=== PATIENT | male | born 1955 | race American Indian/Alaskan Native ===

== ENCOUNTER 2016-11-07 09:48 | Emergency (ER) | payer SELFPAY ==
--- NOTE | 2016-11-07 11:27 | Emergency Department Report ---
Chief Complaint: Abdominal Pain Stated Complaint: ABD PAIN Time Seen by Provider: 11/07/16 11:21 - HPI History of Present Illness: Pt. is a 61 y.o Male who presents to ED c/o sharp, intermittent, non-radiating, abdominal pain x 2 weeks but has gotten worse yesterday. Pt. states pain located to umbilical region .The abdominal pain has gradually worsened. Pt. rates the pain as 6/10 at its worst. The pain is alleviated /aggravated with person on the umbilical region. Patient states she is visiting from [place] states the only medication he takes for chemical imbalance and something for insomnia. Pt. denies fever, chills, chest pain, sob, n/v, abdominal trauma or injury, diarrhea. - ROS Review of Systems: As noted in HPI - Exam Vital Signs: Vital Signs 11/07/16 10:57 Temperature 97.7 F Pulse Rate 84 Respiratory 18 Rate Blood Pressure 151/92 O2 Sat by Pulse 96 Oximetry Physical Exam: GENERAL: Alert and oriented x3, no apparent distress, Normal Gait, atraumatic. HEAD: Head is normocephalic and a-traumatic. LUNGS: Symetrical with respiration, No wheezing, no rales or crackles, CTAB. HEART: S1, S2 present, regular rate and rhythm without murmur, no rubs, no gallops. ABDOMEN: No organomegaly was noted,Positive bowel sounds, soft, and non- distended. Mild tenderness to palpation of the umbilical region. Nontender to palpation on all other Quadrants, NO CVA tenderness. SKIN: Warm and dry, No lesions, No ulceration or induration present. MSE screening note: Focused history and physical exam performed. Due to findings the following was ordered: ED Medical Decision Making - Medical Decision Making Abdominal pain protocol ordered. CT scan ordered. Patient to be seen by ED physician. If labs and CT scanning negative patient can be seen by [facility] provider ED Disposition for MSE Condition: Stable
--- NOTE | 2016-11-07 12:07 | Cat Scan Report ---
CT OF THE ABDOMEN AND PELVIS WITHOUT CONTRAST HISTORY: Abdominal pain, periumbilical pain. TECHNIQUE: Helical CT without contrast. Sagittal and coronal reformatted images. FINDINGS: No comparison. A small periumbilical hernia containing fat and trace fluid is identified just to the right of midline. The hernia has an 8 mm neck. No bowel loops are incorporated. There is moderate fatty infiltration throughout the liver. No obvious liver mass. Normal biliary system, pancreas, spleen, kidneys, adrenal glands and bladder. The prostate gland is moderately enlarged measuring 6.2 cm in diameter. The bowel or normal caliber and wall thickness. Normal appendix. There a few scattered diverticula in the distal colon but no inflammatory changes. Heart size is within normal limits. The aorta is normal caliber. The visualized lung bases are clear. No acute bony abnormality or suspicious bony lesion. Impression: Small periumbilical hernia as described above. Mildly enlarged prostate gland. Hepatic steatosis.
[2016-11-07 12:09] LABS: Basophils % (Auto) 0.5 % (0.0-1.8); Eosinophils % (Auto) 0.7 % (0.0-4.3); Hematocrit 46.6 % (35.5-45.6); Hemoglobin 15.8 gm/dl (11.8-15.2); Mean Corpuscular HGB Conc 34 % (32-34); Mean Corpuscular Hemoglobin 30 pg (28-32); Mean Corpuscular Volume 90 fl (84-94); Platelet Count 174 K/mm3 (140-440); Red Blood Count 5.18 M/mm3 (3.65-5.03); White Blood Count 7.3 K/mm3 (4.5-11.0)
[2016-11-07 12:30] LABS: Alanine Aminotransferase 72 units/L (7-56); Albumin 4.3 g/dL (3.9-5); Albumin/Globulin Ratio 1.4 %; Alkaline Phosphatase 63 units/L (35-129); Anion Gap 17 mmol/L; BUN/Creatinine Ratio 11.25; Bilirubin,Total 0.4 mg/dL (0.1-1.2); Blood Urea Nitrogen 9 mg/dL (9-20); Carbon Dioxide 27 mmol/L (22-30); Chloride 102.3 mmol/L (98-107); Glucose 94 mg/dL (75-100); Lipase 25 units/L (13-60); Potassium 4.2 mmol/L (3.6-5.0); Sodium 142 mmol/L (137-145); Total Protein 7.3 g/dL (6.3-8.2)
[2016-11-07 13:29] LABS: Bilirubin,Urine NEG (Negative); Blood,Urine SM (Negative); Ketones,Urine NEG (Negative); Leukocyte Esterase,Urine NEG (Negative); Mucus,Urine FEW /HPF; Nitrite,Urine NEG (Negative); Protein,Urine <15 mg/dL mg/dL (Negative); Urobilinogen,Urine < 2.0 mg/dL (<2.0); WBC,Urine < 1.0 /HPF (0.0-6.0)
[2016-11-07 16:03] VITALS: BP 138/86
--- NOTE | 2016-11-07 16:35 | Emergency Department Report ---
HPI - General Chief Complaint: Abdominal Pain Time Seen by Provider: 11/07/16 16:05 - HPI HPI: Room 24 The patient is a 61-year-old male presenting with a chief complaint of abdominal pain. The patient states fortifier weeks ago he developed right periumbilical abdominal pain eventually went away. The patient states yesterday the pain returned. Patient now complains of periumbilical pain with direct pressure otherwise he is asymptomatic. Patient denies nausea vomiting or diarrhea. Patient denies any history of fever. The patient states his last bowel movement occurred last night and was within normal limits. The patient is visiting from the [facility] as they are only in town for a Location: Abdomen Duration: [see above] Quality: Pain Severity: Currently 0/10 Modifying factors: Direct pressure causes pain Context: [see above] Mode of transportation: [not driving] ED Past Medical Hx - Past Medical History Previous Medical History?: No - Surgical History Past Surgical History?: No - Family History Family history: no significant - Social History Smoking Status: Former Smoker (stopped smoking 3 days ago) Substance Use Type: Alcohol (occasional) ED Review of Systems ROS: Stated complaint: ABD PAIN Other details as noted in HPI Comment: All other systems reviewed and negative Constitutional: denies: chills, fever Eyes: denies: eye pain, eye discharge, vision change ENT: denies: ear pain, throat pain Respiratory: denies: cough, shortness of breath, wheezing Cardiovascular: denies: chest pain, palpitations Endocrine: no symptoms reported Gastrointestinal: abdominal pain. denies: nausea, vomiting, diarrhea, constipation Genitourinary: denies: urgency, dysuria Musculoskeletal: denies: back pain, joint swelling, arthralgia Skin: denies: rash, lesions Neurological: denies: headache, weakness, paresthesias Psychiatric: denies: anxiety, depression Hematological/Lymphatic: denies: easy bleeding, easy bruising Physical Exam - Physical Exam Vital Signs: Vital Signs 11/07/16 11/07/16 11/07/16 10:57 16:02 16:03 Temperature 97.7 F Pulse Rate 84 69 Respiratory 18 16 16 Rate Blood Pressure 151/92 Blood Pressure 138/86 [Left] O2 Sat by Pulse 96 99 99 Oximetry Physical Exam: GENERAL: The patient is well-developed well-nourished male lying on stretcher not appearing to be in acute distress. [] HEENT: Normocephalic. Atraumatic. Extraocular motions are intact. Patient has moist mucous membranes. NECK: Supple. Trachea midline CHEST/LUNGS: Clear to auscultation. There is no respiratory distress noted. HEART/CARDIOVASCULAR: Regular. There is no tachycardia. There is no gallop rub or murmur. ABDOMEN: Abdomen is soft, with trace discomfort to the right periumbilical region. No obvious hernias palpated or induced. Patient has normal bowel sounds. There is no abdominal distention. SKIN: There is no rash. There is no edema. There is no diaphoresis. NEURO: The patient is awake, alert, and oriented. The patient is cooperative. The patient has normal speech MUSCULOSKELETAL: There is no evidence of acute injury. ED Course Vital Signs 11/07/16 11/07/16 11/07/16 10:57 16:02 16:03 Temperature 97.7 F Pulse Rate 84 69 Respiratory 18 16 16 Rate Blood Pressure 151/92 Blood Pressure 138/86 [Left] O2 Sat by Pulse 96 99 99 Oximetry - Reevaluation(s) Reevaluation #1: 11/07/16 16:41 CT findings and elevated LFTs discussed with patient and spouse. All warnings given and they were advised to follow-up with his primary physician and/or a general surgeon for further evaluation when they arrive home ED Medical Decision Making - Lab Data Result diagrams: 11/07/16 11:57 11/07/16 11:57 Laboratory Tests 11/07/16 11/07/16 11/07/16 11:57 11:57 Unknown WBC 7.3 RBC 5.18 H Hgb 15.8 H Hct 46.6 H MCV 90 MCH 30 MCHC 34 RDW 14.0 Plt Count 174 Lymph % (Auto) 26.9 [place] % (Auto) 9.4 H Eos % (Auto) 0.7 Baso % (Auto) 0.5 Lymph # 2.0 [place] # 0.7 Eos # 0.1 Baso # 0.0 Seg Neutrophils % 62.5 Seg Neutrophils # 4.6 Sodium 142 Potassium 4.2 Chloride 102.3 Carbon Dioxide 27 Anion Gap 17 BUN 9 Creatinine 0.8 Estimated GFR > 60 BUN/Creatinine Ratio 11.25 Glucose 94 Calcium 9.0 Total Bilirubin 0.4 AST 42 H ALT 72 H Alkaline Phosphatase 63 Total Protein 7.3 Albumin 4.3 Albumin/Globulin Ratio 1.4 Lipase 25 Urine Color Yellow Urine Turbidity Clear Urine pH 6.0 Ur Specific [employer] 1.020 Urine Protein <15 mg/dl Urine Glucose (UA) Neg Urine Ketones Neg Urine Blood Sm Urine Nitrite Neg Urine Bilirubin Neg Urine Urobilinogen < 2.0 Ur Leukocyte Esterase Neg Urine WBC (Auto) < 1.0 Urine RBC (Auto) 6.0 U Epithel Cells (Auto) 1.0 Urine Mucus Few - Radiology Data Radiology results: report reviewed (CT abdomen and pelvis), image reviewed (CT abdomen and pelvis) CT abdomen and pelvis (read by radiologist)-small periumbilical hernia. Mildly enlarged prostate gland. Hepatic steatosis. Small. Local hernia containing fat and trace fluid is identified just to the right of midline. The hernia has an 8 mm neck. No bowel loops are cooperated. Critical care attestation.: If time is entered above; I have spent that time in minutes in the direct care of this critically ill patient, excluding procedure time. ED Disposition Clinical Impression: Periumbilical hernia, Abdominal pain, Elevated LFTs Disposition: DISCHARGED TO HOME OR SELFCARE Is pt being admited?: No Does the pt Need Aspirin: No Condition: Stable Instructions: Umbilical Hernia (ED) Additional Instructions: Return to the emergency department immediately should you develop worsening symptoms, fever, inability to tolerate food or liquid or any other concerns. Referrals: PRIMARY CARE [Primary Care Provider] - 3-5 Days Time of Disposition: 16:32
== END 2016-11-07 16:37 | disposition home or self-care (01) ==
LOC: ED 09:48
DX: K42.9 Umbilical hernia without obstruction or gangrene (principal); Z87.891 Personal history of nicotine dependence
CPT/HCPCS: 36415; 72192; 74176; 80053; 81001; 83690; 85025